=== PATIENT | female | born 1975 | race Caucasian/White ===

== ENCOUNTER 2016-09-20 11:53 | Day surgery (SDC) | payer BC ==
[~2016-09-20 11:53] MED LIST: RINGERS SOLUTION,LACTATED 1,000 ML IV PRN; ceFAZolin SODIUM 1 GM in DEXTROSE 5 % IN WATER 100 ML IV PRN
--- OUTSIDE RECORDS SUMMARY | 2016-09-20 12:01 | XMS REPORT | Continuity of Care Document ---
:1975 Author Organization [facility] ([facility]) Address [address] [place] [address] Phone [phone] Care Team Providers Name Role Phone Gerardo Humphreys Primary Care Provider [phone] Source Comments This disclosure is being made pursuant to the Care Everywhere program, applicable federal and state laws, and may not contain all informaitonavailable regarding this patient.[facility] ([facility]) Active Allergies and Adverse Reactions No Active Allergies Current Medications Not on file Active Problems Not on file Social History Tobacco Use Types Packs/Day Years Used Date Never Assessed Last Filed Vital Signs Vital Sign Reading Time Taken Blood Pressure 112/76 01/15/2004 1:11 PM CDT Pulse 88 01/15/2004 1:11 PM CDT Temperature - - Respiratory Rate - - Height 1.66 m (5' 5.35") 01/15/2004 1:11 PM CDT Weight 102.2 kg (225 lb 5 oz) 01/15/2004 1:11 PM CDT Body Mass Index 37.09 01/15/2004 1:11 PM CDT Oxygen Saturation - - Plan of Care Health Maintenance Due Date Last Done Comments Hepatitis B Vaccine (1 of 3 - Primary Series) 1975 Tdap Vaccine 1985 Lipid Disorder Screening 1992 MMR Vaccine 1992 Td Vaccine 1992 Cervical Cancer Screening 2004 Mammogram 2014 Influenza Vaccine: Seasonal (#1) 03/07/2016 Results from Last 3 Months Not on file
[2016-09-20] MEDS ORDERED: RINGERS SOLUTION,LACTATED 1,000 ML IV ONE (12:37)
[2016-09-20] MEDS ORDERED: BUPIVACAINE HCL/EPINEPHRINE 50 ML VIAL IJ ONE (13:15)
[2016-09-20] MEDS ORDERED: BUPIVACAINE HCL 50 ML VIAL IJ ONE (13:15)
[2016-09-20] MEDS ORDERED: DEXAMETHASONE SOD PHOSPHATE 10 MG/ML VIAL IJ ONE (13:58)
[2016-09-20] MEDS ORDERED: HYDROcodone/ACETAMINOPHEN 1 EACH TABLET PO PRN (14:40)
[2016-09-20] MEDS ORDERED: PROCHLORPERAZINE EDISYLATE 5 MG/ML VIAL IM PRN (14:40)
[2016-09-20 15:29] VITALS: BP 129/64
== END 2016-09-20 11:54 | disposition home or self-care (01) ==
LOC: AMB 11:53
PROVIDERS: ATTEND Podiatrist
PROC: 0QBQ0ZZ Excision of Right Toe Phalanx, Open Approach (ICD-10-PCS; 2016-09-20)
PROC: 0QBN0ZZ Excision of Right Metatarsal, Open Approach (ICD-10-PCS; principal; 2016-09-20 13:00)
DX: M25.774 Osteophyte, right foot (principal); M77.9 Enthesopathy, unspecified; E11.9 Type 2 diabetes mellitus without complications; I10 Essential (primary) hypertension; E78.5 Hyperlipidemia, unspecified; K21.9 Gastro-esophageal reflux disease without esophagitis; F32.9 Major depressive disorder, single episode, unspecified; Z68.41 Body mass index [BMI] 40.0-44.9, adult

== ENCOUNTER 2017-04-28 08:15 | Day surgery (SDC) | payer BC ==
[~2017-04-28 08:15] MED LIST changes: +RINGER'S SOLUTION,LACTATED 1,000 ML IV PRN; -RINGERS SOLUTION,LACTATED 1,000 ML IV PRN; -ceFAZolin SODIUM 1 GM in DEXTROSE 5 % IN WATER 100 ML IV PRN
[2017-04-28] MEDS ORDERED: RINGER'S SOLUTION,LACTATED 1,000 ML IV ONE (08:55)
--- NOTE | 2017-04-28 10:19 | OR ---
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 A flexible fiberoptic video colonoscope was introduced. She was noted to have a posterior external hemorrhoidal skin tag. The scope was advanced under direct vision without difficulty to the cecum. The usual landmarks were identified. Preparation was excellent and excellent views were obtained. The findings were of a normal cecum, ascending colon, hepatic flexure, transverse colon, splenic flexure, descending colon. A pedunculated polyp was identified at 45 cm and was excised with a snare using electrocautery. The polyp was grasped with a three-prong grasper and extracted. The scope was advanced to 50 cm and the remainder of the colon was visualized and revealed rectal varices. Photodocumentation of this finding was obtained. Retroflex view was normal. The mucosal color, and texture were normal throughout. No suspicious masses were seen save for the polyp. The patient tolerated the procedure well without apparent complications and was discharged from the endoscopy suite in stable condition.
[2017-04-28 11:13] VITALS: BP 123/66
== END 2017-04-28 08:16 | disposition home or self-care (01) ==
LOC: AMB 08:15
PROVIDERS: ATTEND Specialist
PROC: 0DBE8ZX Excision of Large Intestine, Via Natural or Artificial Opening Endoscopic, Diagnostic (ICD-10-PCS; principal; 2017-04-28 09:00)
DX: Z12.11 Encounter for screening for malignant neoplasm of colon (principal); K63.5 Polyp of colon; I86.8 Varicose veins of other specified sites; K21.9 Gastro-esophageal reflux disease without esophagitis; E78.5 Hyperlipidemia, unspecified; F32.9 Major depressive disorder, single episode, unspecified; Z68.42 Body mass index [BMI] 45.0-49.9, adult